=== PATIENT | male | born 2000 | race Caucasian/White ===

== ENCOUNTER 2019-02-09 07:21 | Emergency (ER) | payer MEDICAID ==
[2019-02-09 07:32] VITALS: BP 127/70
--- NOTE | 2019-02-09 08:32 | Emergency Department Report ---
- General Chief complaint: Animal Bite Stated complaint: R LEG PAIN Time Seen by Provider: 02/09/19 07:56 Source: patient Mode of arrival: Ambulatory Limitations: No Limitations - History of Present Illness Initial comments: 18-year-old male was outside doing yardwork and shortened. He was bitten by an insect to his right lower inner thigh has tender area since the onset. Area is warm reports no fever, chills, or or discharge. No pain to his abdomen. MD complaint: rash, insect bite/sting Tetanus Up to Date: no Location: LLE Severity: mild Quality: dull Consistency: constant Improves with: none Worsens with: movement Context: none Associated symptoms: denies other symptoms Treatments Prior to Arrival: none - Related Data Previous Rx's Medication Instructions Recorded Last Taken Type Mupirocin [Bactroban 2%] 15 applic TP TID #15 gm 02/09/19 Unknown Rx Sulfamethoxazole/Trimethoprim 1 each PO BID #20 tablet 02/09/19 Unknown Rx [Bactrim Ds] Allergies Allergy/AdvReac Type Severity Reaction Status Date / Time No Known Allergies Allergy Unverified 02/09/19 07:26 Abscess Boil HPI - HPI Chief Complaint: Animal Bite Stated Complaint: R LEG PAIN Time Seen by Provider: 02/09/19 07:56 Home Medications: Previous Rx's Medication Instructions Recorded Last Taken Type Mupirocin [Bactroban 2%] 15 applic TP TID #15 gm 02/09/19 Unknown Rx Sulfamethoxazole/Trimethoprim 1 each PO BID #20 tablet 02/09/19 Unknown Rx [Bactrim Ds] Allergies/Adverse Reactions: Allergies Allergy/AdvReac Type Severity Reaction Status Date / Time No Known Allergies Allergy Unverified 02/09/19 07:26 ED Review of Systems ROS: Stated complaint: R LEG PAIN Other details as noted in HPI Comment: All other systems reviewed and negative ED Past Medical Hx - Social History Smoking Status: Unknown if ever smoked Substance Use Type: None - Medications Home Medications: Home Medications Medication Instructions Recorded Confirmed Last Taken Type Mupirocin [Bactroban 2%] 15 applic TP TID #15 gm 02/09/19 Unknown Rx Sulfamethoxazole/Trimethoprim 1 each PO BID #20 tablet 02/09/19 Unknown Rx [Bactrim Ds] ED Physical Exam - General Limitations: No Limitations General appearance: alert, in no apparent distress - Head Head exam: Present: atraumatic, normocephalic - Eye Eye exam: Present: normal appearance - ENT ENT exam: Present: mucous membranes moist - Neck Neck exam: Present: normal inspection - Respiratory Respiratory exam: Present: normal lung sounds bilaterally. Absent: respiratory distress - Cardiovascular Cardiovascular Exam: Present: regular rate, normal rhythm. Absent: systolic murmur, diastolic murmur, rubs, gallop - GI/Abdominal GI/Abdominal exam: Present: soft, normal bowel sounds - Rectal Rectal exam: Present: deferred - Extremities Exam Extremities exam: Present: normal inspection, tenderness (6. Cellulitis to the lower thigh. No fluctuance noted. No lymphangitis. No inguinal lymphadenopathy. No popliteal mass), normal capillary refill. Absent: pedal edema, joint swelling, calf tenderness - Back Exam Back exam: Present: normal inspection - Neurological Exam Neurological exam: Present: alert, oriented X3, CN II-XII intact - Psychiatric Psychiatric exam: Present: normal affect, normal mood. Absent: anxious, flat af fect - Skin Skin exam: Present: warm, dry, intact, normal color. Absent: rash ED Course Vital Signs 02/09/19 07:31 Temperature 98.1 F Pulse Rate 63 Respiratory 16 Rate Blood Pressure 127/70 O2 Sat by Pulse 100 Oximetry Critical care attestation.: If time is entered above; I have spent that time in minutes in the direct care of this critically ill patient, excluding procedure time. ED Disposition Clinical Impression: Cellulitis Disposition: DC-01 TO HOME OR SELFCARE Is pt being admited?: No Does the pt Need Aspirin: No Condition: Stable Instructions: Cellulitis (ED) Prescriptions: Sulfamethoxazole/Trimethoprim [Bactrim Ds] 1 each PO BID #20 tablet Mupirocin [Bactroban 2%] 15 applic TP TID #15 gm Referrals: YONIS WASHBURN MD [Primary Care Provider] - 3-5 Days
== END 2019-02-09 08:56 | disposition home or self-care (01) ==
LOC: ED 07:21
DX: L03.115 Cellulitis of right lower limb (principal); Z79.899 Other long term (current) drug therapy
CPT/HCPCS: 99282

== ENCOUNTER 2020-03-12 14:25 | Emergency (ER) | payer MEDICAID ==
[2020-03-12 14:39] VITALS: BP 155/83
== END 2020-03-13 08:57 | disposition left against medical advice (07) ==
LOC: ED 14:25
DX: S41.152A Open bite of left upper arm, initial encounter (principal); Z53.21 Procedure and treatment not carried out due to patient leaving prior to being seen by health care provider; W57.XXXA Bitten or stung by nonvenomous insect and other nonvenomous arthropods, initial encounter; Y93.89 Activity, other specified; Y92.89 Other specified places as the place of occurrence of the external cause; Y99.8 Other external cause status

== ENCOUNTER 2020-09-15 08:57 | Emergency (ER) | payer MEDICAID ==
[2020-09-15 09:02] VITALS: BP 154/96
[2020-09-15] MEDS ORDERED: IBUPROFEN 800 MG TAB PO ONE (09:29)
--- NOTE | 2020-09-15 10:33 | XRay Report ---
RIGHT ANKLE 3 VIEWS INDICATION / CLINICAL INFORMATION: right ankle pain and swelling. COMPARISON: None available. FINDINGS: BONES/JOINT(S): No acute fracture or subluxation. No significant degenerative changes. SOFT TISSUES: Soft tissue swelling in the lateral ankle. ADDITIONAL FINDINGS: None. Signer Name: Viktor Will MD Signed: 09/15/2020 10:29 AM Workstation Name: [id number]
--- NOTE | 2020-09-15 10:44 | Emergency Department Report ---
ED Lower Extremity HPI - General Chief Complaint: Extremity Injury, Lower Stated Complaint: RT ANKLE INJURY Time Seen by Provider: 09/15/20 09:24 Source: patient Mode of arrival: Wheelchair Limitations: No Limitations - History of Present Illness Initial Comments: This is a 20-year-old male nontoxic, well nourished in appearance, no acute signs of distress presents to the ED with c/o of right ankle pain 1 day. Patient stated that he twisted it yesterday. Patient denies any other injuries or trauma. Denies any other complaints or symptoms. Patient denies any numbness, tingling, fever, chills, nausea, vomiting, chest pain, shortness of breath, headache, stiff neck. Patient denies any joint swelling or joint redness. Patient denies decreased range of motion. Patient stated has decreased gait due to pain. Patient denies any allergies or significant past medical history. MD Complaint: ankle injury -: days(s) Injury: Ankle: Right Type of Injury: inversion Place: street/outdoors Severity: mild Severity scale (0 -10): 8 Improves With: immobilization Worsens With: weight bearing, movement, palpation Associated Symptoms: swelling, able to partially bear weight. denies: snap/pop sensation, numbness, tingling, unable to bear weight - Related Data Previous Rx's Medication Instructions Recorded Last Taken Type Mupirocin [Bactroban 2%] 15 applic TP TID #15 gm 02/09/19 Unknown Rx Sulfamethoxazole/Trimethoprim 1 each PO BID #20 tablet 02/09/19 Unknown Rx [Bactrim Ds] Naproxen 500 mg PO Q12H PRN #12 tablet 09/15/20 Unknown Rx Allergies Allergy/AdvReac Type Severity Reaction Status Date / Time No Known Allergies Allergy Unverified 02/09/19 07:26 ED Review of Systems ROS: Stated complaint: RT ANKLE INJURY Other details as noted in HPI Comment: All other systems reviewed and negative Constitutional: denies: chills, fever Eyes: denies: eye pain, eye discharge, vision change ENT: denies: ear pain, throat pain Respiratory: denies: cough, shortness of breath, wheezing Cardiovascular: denies: chest pain, palpitations Endocrine: no symptoms reported Gastrointestinal: denies: abdominal pain, nausea, diarrhea Genitourinary: denies: urgency, dysuria Musculoskeletal: denies: back pain, joint swelling, arthralgia Skin: denies: rash, lesions Neurological: denies: headache, weakness, paresthesias Psychiatric: denies: anxiety, depression Hematological/Lymphatic: denies: easy bleeding, easy bruising ED Past Medical Hx - Past Medical History Previous Medical History?: No - Surgical History Past Surgical History?: No - Social History Smoking Status: Never Smoker Substance Use Type: None - Medications Home Medications: Home Medications Medication Instructions Recorded Confirmed Last Taken Type Mupirocin [Bactroban 2%] 15 applic TP TID #15 gm 02/09/19 Unknown Rx Sulfamethoxazole/Trimethoprim 1 each PO BID #20 tablet 02/09/19 Unknown Rx [Bactrim Ds] Naproxen 500 mg PO Q12H PRN #12 tablet 09/15/20 Unknown Rx ED Physical Exam - General Limitations: No Limitations General appearance: alert, in no apparent distress - Head Head exam: Present: atraumatic, normocephalic - Eye Eye exam: Present: normal appearance - Neck Neck exam: Present: normal inspection, full ROM - Respiratory Respiratory exam: Absent: respiratory distress - Cardiovascular Cardiovascular Exam: Present: regular rate - Extremities Exam Extremities exam: Present: normal inspection, full ROM, tenderness, normal capillary refill. Absent: joint swelling, calf tenderness - Expanded Lower Extremity Exam Right Hip exam: Present: normal inspection, full ROM. Absent: tenderness, swelling Upper Leg exam: Present: normal inspection, full ROM. Absent: tenderness, swelling Knee exam: Present: normal inspection, full ROM. Absent: tenderness, swelling Lower Leg exam: Present: normal inspection, full ROM. Absent: tenderness, swelling Ankle exam: Present: full ROM, tenderness, swelling. Absent: abrasion, lac eration, ecchymosis, deformity, crepidus, dislocation, erythema, anterior draw sign Foot/Toe exam: Present: normal inspection, full ROM. Absent: tenderness, swelling, abrasion, laceration, ecchymosis, deformity, crepidus, dislocation, erythema, amputation, puncture wound, foreign body, calcaneal tenderness, tenderness at base of 5th metatarsal, nail avulsion, subungual hematoma Neuro vascular tendon exam: Present: no vascular compromise Gait: Positive: observed and limited by pain - Back Exam Back exam: Present: normal inspection, full ROM - Neurological Exam Neurological exam: Present: alert, oriented X3 - Psychiatric Psychiatric exam: Present: normal affect, normal mood - Skin Skin exam: Present: warm, dry, intact, normal color. Absent: rash ED Course Vital Signs 09/15/20 08:59 Temperature 98.3 F Pulse Rate 93 H Respiratory 18 Rate Blood Pressure 154/96 O2 Sat by Pulse 98 Oximetry - Reevaluation(s) Reevaluation #1: 09/15/20 10:43 Patient is speaking in full sentences with no signs of distress noted. ED Lower Extremity MDM - Radiology Data [facility] [address] [place] [address] XRay Report Signed Patient: MITCH WOODS MR#: [id number] 7 : 2000 Acct:[id number] Age/Sex: 20 / M ADM Date: 09/15/20 Loc: ED Attending Dr: Ordering Physician: JUDY DUFFY NP Date of Service: 09/15/20 Procedure(s): XR ankle 3+V RT Accession Number(s): [id number] cc: JUDY DUFFY NP Fluoro Time In Minutes: RIGHT ANKLE 3 VIEWS INDICATION / CLINICAL INFORMATION: right ankle pain and swelling. COMPARISON: None available. FINDINGS: BONES/JOINT(S): No acute fracture or subluxation. No significant degenerative changes. SOFT TISSUES: Soft tissue swelling in the lateral ankle. ADDITIONAL FINDINGS: None. Signer Name: Viktor Will MD Signed: 09/15/2020 10:29 AM Workstation Name: [id number] Transcribed By: JEAN-PAUL Dictated By: Viktor Will MD Electronically Authenticated By: Viktor Will MD Signed Date/Time: 09/15/20 1029 DD/ 1028 TD/TT: - Medical Decision Making This is a 20-year-old male that presents with right ankle sprain. Patient is stable and was examined by me. I referred patient to an orthopedic doctor for further evaluation for possible MRI. X-ray has been obtained and dictated by the radiologist. Patient is notified of the x-ray report with noted by the patient. Patient received a knee immobilize and crutches and was educated by RN how to use crutches.Patient was instructed to RICE therapy. Patient received Motrin for pain. Patient is discharged with Motrin. At time of discharge, the patient does not seem toxic or ill in appearance. No acute signs of distress noted. Patient agrees to discharge treatment plan of care. No further questio ns noted by the patient. Critical care attestation.: If time is entered above; I have spent that time in minutes in the direct care of this critically ill patient, excluding procedure time. ED Disposition Clinical Impression: Right ankle sprain Qualifiers: Encounter type: initial encounter Involved ligament of ankle: unspecified ligament Qualified Code(s): S93.401A - Sprain of unspecified ligament of right ankle, initial encounter Disposition: TO HOME OR SELFCARE Is pt being admited?: No Does the pt Need Aspirin: No Condition: Stable Instructions: Ankle Sprain, [id number], RICE Therapy for Routine Care of Injuries, [id number], Crutch Use, Adult, [id number] Additional Instructions: Follow-up with a orthopedic doctor in 3-5 days or if symptoms worsen and continue return to emergency room as soon as possible. No physical activity that extremity until cleared by orthopedic doctor Prescriptions: Naproxen 500 mg PO Q12H PRN #12 tablet PRN Reason: Pain , Severe (7-10) Referrals: PRIMARY CARE, [Primary Care Provider] - 3-5 Days GEOVANNY ARREDONDO MD [Staff Physician] - 3-5 Days Forms: Work/School Release Form(ED) Time of Disposition: 10:45
== END 2020-09-15 11:10 | disposition home or self-care (01) ==
LOC: ED 08:57
DX: S93.401A Sprain of unspecified ligament of right ankle, initial encounter (principal); Z79.899 Other long term (current) drug therapy; X50.1XXA Overexertion from prolonged static or awkward postures, initial encounter; Y93.89 Activity, other specified; Y92.89 Other specified places as the place of occurrence of the external cause; Y99.8 Other external cause status

== ENCOUNTER 2021-02-09 00:04 | Emergency (ER) | payer MEDICAID ==
[2021-02-09 00:10] VITALS: BP 145/94
--- NOTE | 2021-02-09 01:58 | Emergency Department Report ---
ED General Adult HPI - General Chief complaint: Dental/Oral Stated complaint: LT SIDE MOUTH PAIN Time Seen by Provider: 02/09/21 01:45 Source: patient Mode of arrival: Ambulatory Limitations: No Limitations - History of Present Illness Initial comments: 20-year-old male patient presents to the emergency department with complaints of dental pain for 3 weeks. Pain is localized to the left lower jaw. Patient has been out of town and just returned to [place] yesterday. He states he is planning on calling his dentist tomorrow. He has been taking Motrin for pain. He has not been on any antibiotics since the pain began. Denies fever, chills, sore throat, dysphagia, hoarseness, shortness of breath. Denies all other complaints at this time. - Related Data Previous Rx's Medication Instructions Recorded Last Taken Type Mupirocin [Bactroban 2%] 15 applic TP TID #15 gm 02/09/19 Unknown Rx Sulfamethoxazole/Trimethoprim 1 each PO BID #20 tablet 02/09/19 Unknown Rx [Bactrim Ds] Naproxen 500 mg PO Q12H PRN #12 tablet 09/15/20 Unknown Rx Naproxen 500 mg PO BID #20 tablet 02/09/21 Unknown Rx Penicillin Vk [Veetids TAB] 500 mg PO QID 7 Days tablet 02/09/21 Unknown Rx Allergies Allergy/AdvReac Type Severity Reaction Status Date / Time No Known Allergies Allergy Unverified 02/09/19 07:26 ED Review of Systems ROS: Stated complaint: LT SIDE MOUTH PAIN Other details as noted in HPI Other: GENERAL: Negative for fever. ENT: Positive for dental pain. CARDIOVASCULAR: Negative for chest pain. PULMONARY: Negative for shortness of breath. GASTROINTESTINAL: Negative for abdominal pain. MUSCULOSKELETAL: Negative for back pain. NEUROLOGICAL: Negative for headache. INTEGUMENTARY: Negative for rash. ED Past Medical Hx - Past Medical History Previous Medical History?: No - Surgical History Past Surgical History?: No - Social History Smoking Status: Never Smoker Substance Use Type: None - Medications Home Medications: Home Medications Medication Instructions Recorded Confirmed Last Taken Type Mupirocin [Bactroban 2%] 15 applic TP TID #15 gm 02/09/19 Unknown Rx Sulfamethoxazole/Trimethoprim 1 each PO BID #20 tablet 02/09/19 Unknown Rx [Bactrim Ds] Naproxen 500 mg PO Q12H PRN #12 tablet 09/15/20 Unknown Rx Naproxen 500 mg PO BID #20 tablet 02/09/21 Unknown Rx Penicillin Vk [Veetids TAB] 500 mg PO QID 7 Days tablet 02/09/21 Unknown Rx ED Physical Exam - General Limitations: No Limitations - Other Other exam information: General: Awake, appropriately interactive, no acute distress. Dental: Oral mucosa is moist. Tenderness to palpation along the left lower molar with moderate decay. The gingiva appear normal. No fluctuance or evidence of periapical abscess. Sublingual, submental, and submandibular spaces all soft, without edema. No evidence for maxillary or buccal space abscess. No trismus. Patient is speaking in full sentences and handling secretions without difficulty. Neck: Supple. Full range of motion intact. Cardiovascular: Normal peripheral perfusion. Pulmonary: No respiratory distress. Patient is speaking normally without use of accessory muscles. Skin: No apparent rashes or lesions. Neurological: No facial asymmetry. Speech is clear. Follows commands. Patient is alert and oriented. Musculoskeletal: Moves all four extremities spontaneously with normal range of motion. Psych: Cooperative. Appropriate mood and affect. ED Course Vital Signs 02/09/21 00:08 Temperature 98.6 F Pulse Rate 94 H Respiratory 16 Rate Blood Pressure 145/94 O2 Sat by Pulse 99 Oximetry ED Medical Decision Making - Medical Decision Making Differential diagnosis including but not limited to: dental abscess, Epifanio's angina, necrotizing gingivitis, dental caries Patient presents to the emergency department with complaints of dental pain to his left lower molar for a few weeks. He is afebrile, hemodynamically stable, no hypoxia, no respiratory distress, tolerating oral intake without difficulty, handling secretions without difficulty. No clinical indication to suggest airway obstruction and/or systemic bacterial infection at this time. Patient will be discharged home with appropriate antibiotic/analgesia and referred to dentist for close outpatient follow-up. Emphasized the importance of calling the dentist today to arrange for definitive management of ongoing dental issues. Patient expressed understanding and is agreeable to plan of care. Dietary modifications discussed. Strict return precautions provided. History, exam, diagnostic testing, and current condition do not suggest worrisome pathology to warrant further testing, continued ED treatment, admission, or surgical evaluation at this point. Given the low probability of a significant medical illness, it would be more likely to result in harm than benefit to perform further testing at this stage. Discussed findings, presumptive diagnosis, need for follow-up and specific signs/symptoms that should prompt immediate return to the emergency department. Instructions were explained in detail to the patient in addition to giving written discharge information. Patient expressed understanding and was given the opportunity to ask questions, all of which were satisfactorily answered prior to discharge home. Critical care attestation.: If time is entered above; I have spent that time in minutes in the direct care of this critically ill patient, excluding procedure time. ED Disposition Clinical Impression: Odontalgia Disposition: TO HOME OR SELFCARE Is pt being admited?: No Does the pt Need Aspirin: No Condition: Stable Instructions: Diet and Dental Disease Additional Instructions: Take Tylenol every 4 hours as needed for pain. Take Naprosyn twice daily with food as needed for pain. Take Penicillin with food as directed. You must follow-up with your dentist for definitive management. Call today to schedule an appointment. Return to the emergency department immediately for new or worsening symptoms. Prescriptions: Naproxen 500 mg PO BID #20 tablet Penicillin Vk [Veetids TAB] 500 mg PO QID 7 Days tablet Referrals: [facility] [Outside] - 3-5 Days Time of Disposition: 01:57
== END 2021-02-09 02:00 | disposition home or self-care (01) ==
LOC: ED 00:04
DX: K08.89 Other specified disorders of teeth and supporting structures (principal)
CPT/HCPCS: 99282

== ENCOUNTER 2021-11-16 19:02 | Emergency (ER) | payer MEDICAID ==
[2021-11-16 20:23] VITALS: BP 123/63
--- NOTE | 2021-11-16 21:10 | XRay Report ---
RIGHT ANKLE, 3 VIEWS INDICATION / CLINICAL INFORMATION: injury. Patient twisted ankle today. COMPARISON: None available. FINDINGS: No fracture or dislocation identified. Ankle mortise is intact. There may be some mild lateral soft t issue swelling. IMPRESSION: No visible fracture or dislocation. Signer Name: Kirstin Ayon MD Signed: 11/16/2021 9:06 PM Workstation Name: [id number]
== END 2021-11-17 07:00 | disposition left against medical advice (07) ==
LOC: ED 19:02
DX: M25.571 Pain in right ankle and joints of right foot (principal); Z53.21 Procedure and treatment not carried out due to patient leaving prior to being seen by health care provider